=== PATIENT | male | born 1980 | race Hispanic/Latino ===

== ENCOUNTER 2023-05-15 16:50 | Outpatient (CLI) | payer OTHER ==
[2023-05-15 17:19] LABS: #Basophils 0.1 10x3/uL (0.0-0.2); #Monocytes 0.5 10x3/uL (0.0-1.1); #Neutrophils 5.1 10x3/uL (1.5-8.4); %Basophils 0.7 % (0.0-2.0); %Eosinophils 0.5 % (0.0-6.0); %Monocytes 6.8 % (0.0-10.0); %Neutrophils 69.9 % (40.0-75.0); Hematocrit 43.9 % (38.8-50.0); Mean Corpuscular HGB CONC 34.2 g/dL (32.0-36.0); Mean Corpuscular Hemoglobin 31.2 pg (27.0-33.0); Mean Corpuscular Volume 91.3 fl (81.2-95.1); Mean Platelet Volume 8.8 fl (7.4-10.4); Platelet Count 280 10x3/uL (150-450); Red Blood Cell (RBC) Count 4.81 10x6/uL (4.32-5.72); White Blood Cell (WBC) Count 7.3 10x3/uL (3.5-10.5)
== END 2023-05-15 16:51 | disposition home or self-care (01) ==
LOC: LABBT 16:50
PROVIDERS: ATTEND Surgery
DX: Z01.812 Encounter for preprocedural laboratory examination (principal); K40.90 Unilateral inguinal hernia, without obstruction or gangrene, not specified as recurrent
CPT/HCPCS: 85025

== ENCOUNTER 2023-05-18 06:13 | Day surgery (SDC) | payer OTHER ==
[2023-05-15 17:00] VITALS: BMI 28.8
[2023-05-18] MEDS ORDERED: Lidocaine 1% MPF 2 ML VIAL ONE (06:39)
[2023-05-18] MEDS ORDERED: CEFAZOLIN 2 GM VIAL ONE (06:40)
[2023-05-18] MEDS ORDERED: Sodium Chloride 0.9% 100 ML ONE (06:40)
[2023-05-18] MEDS ORDERED: Dexamethasone 4 mg/ml Vial ONE (06:54)
[2023-05-18] MEDS ORDERED: SUGAMMADEX SODIUM 200 MG/2 ML VIAL ONE (06:54)
[2023-05-18] MEDS ORDERED: fentaNYL PF 100 MCG/2 ML SYRINGE ONE ×2 (06:54→07:49)
[2023-05-18] MEDS ORDERED: Rocuronium Bromide 10 MG/ML (10ML VIAL) ONE (06:54)
[2023-05-18] MEDS ORDERED: Lidocaine 1% PF 5 ML VIAL ONE (06:54)
[2023-05-18] MEDS ORDERED: Ondansetron PF 4 MG/2 ML Vial ONE (06:54)
[2023-05-18] MEDS ORDERED: PROPOFOL 40 ML ONE (06:54)
[2023-05-18] MEDS ORDERED: EPINEPHrine 1 MG/ML VIAL ONE (06:56)
[2023-05-18] MEDS ORDERED: Bupivacaine 0.25% HCL 30 ML VIAL ONE (06:57)
[2023-05-18] MEDS ORDERED: Dexmedetomidine 200 MCG/2 ML VIAL ONE (07:22)
[2023-05-18] MEDS ORDERED: Midazolam HCl 2 mg/2 ml Vial ONE ×2 (07:22→07:23)
[2023-05-18] MEDS ORDERED: Lidocaine 2% 6 ML (Jelly) SYR ONE (07:23)
[2023-05-18] MEDS ORDERED: Ketorolac Tromethamine 30 MG/ML VIAL ONE (07:42)
[2023-05-18] MEDS ORDERED: fentaNYL 50 mcg/mL 1 mL Vial ONE (09:13)
== END 2023-05-18 11:23 | disposition home or self-care (01) ==
LOC: SDC 06:13
PROVIDERS: ATTEND Surgery
PROC: 0YU64JZ Supplement Left Inguinal Region with Synthetic Substitute, Percutaneous Endoscopic Approach (ICD-10-PCS; principal; 2023-05-18)
DX: K40.90 Unilateral inguinal hernia, without obstruction or gangrene, not specified as recurrent (principal); G89.29 Other chronic pain
CPT/HCPCS: A4314; C1781; J0171; J1100; J1885; J2250; J2405; J2704; J3010; J3490; S0020